=== PATIENT | female | born 1985 | race Caucasian/White ===

== ENCOUNTER → 2024-03-07 08:58 | Outpatient (BNVA) | payer BC, SELFPAY | PROVIDERS: Visit Provider Nurse Practitioner | DX: E66.9 Obesity, unspecified (principal); R03.0 Elevated blood-pressure reading, without diagnosis of hypertension; Z13.6 Encounter for screening for cardiovascular disorders; O24.919 Unspecified diabetes mellitus in pregnancy, unspecified trimester | CPT/HCPCS: 80053; 80061; 83036 ==